=== PATIENT | male | born 1975 | race Two or more races ===

== ENCOUNTER 2018-05-28 13:48 | Emergency (ER) | payer SELFPAY ==
[~2018-05-28] VITALS: Ht 170.2 cm; Wt 72.6 kg
[2018-05-28 14:15] VITALS: BP 115/72
[2018-05-28] MEDS ORDERED: Fluorescein Strips RIGHT EYE ONE (14:15)
[2018-05-28] MEDS ORDERED: Tetracaine 0.5% Opth 4ml Soln RIGHT EYE ONE (14:15)
--- NOTE | 2018-05-28 15:08 | Emergency Room Report ---
History of Present Illness General Chief Complaint: Eye Problems Source: Patient Present Illness HPI 42-year-old male presents to the emergency department complaining of 9 out of 10 in severity pain, erythema and increased lacrimation to bilateral eyes 2 days. Patient reports symptoms in the right eye are more significant than the left. She reports that he was lifting a box and a bunch of dust blew from the top of it down into his eyes bilaterally. Patient reports scratching/foreign body sensation in the right eye. Patient also states that he has pain in the right shoulder as the boxes very heavy.Denies: purulent discharge from the eyes , Loss of vision, Floaters, Flashing lights, photophobia or diplopia. Denies contact lens use. last tetanus unknown. Allergies: Coded Allergies: No Known Allergies (Unverified , 05/28/18) Patient History Past Medical History: see triage record Past Surgical History: none Pertinent Family History: none Reviewed Nursing Documentation: PMH: Agreed; PSxH: Agreed Nursing Documentation-PMH Past Medical History: No Stated History Review of Systems All Other Systems: negative except mentioned in HPI Physical Exam Vital Signs Date Time Temp Pulse Resp B/P (MAP) Pulse Ox O2 Delivery O2 Flow Rate FiO2 05/28/18 13:56 98.4 66 18 115/72 96 Room Air 98.4 Sp02 EP Interpretation: reviewed, normal General Appearance: no apparent distress, alert, GCS 15, non-toxic Head: normocephalic, atraumatic Eyes: right eye other - obvious fb metallic fragment in right eye; bilateral eye normal inspection, bilateral eye PERRL, bilateral eye EOMI, bilateral eye visual acuity - right 20/200, left 20/70, bilateral eye Scleral Injection ENT: hearing grossly normal, normal voice Neck: full range of motion Respiratory: lungs clear, normal breath sounds, speaking full sentences Cardiovascular #1: regular rate, rhythm, normal capillary refill Musculoskeletal: back normal, gait/station normal, normal range of motion, tender - Lateral portion of the right shoulder, FROM, no obvious deformity. Neurologic: alert, oriented x3, responsive, motor strength/tone normal, sensory intact, speech normal, grossly normal Psychiatric: judgement/insight normal Skin: normal color, no rash, warm/dry, well hydrated Procedures Eye Procedure Eye Procedure : Consent: Verbal Alcaine Drops Administered: No - tetricaine Eye FB Removal: removal w/ cotton swab, removal w/ needle Patient Tolerated: Well Complications: None Progress -Removal of metallic Fb from eye- -Verbal consent was obtained. Patient's eye was anesthetized using tetracaine ophthalmic solution, good anesthetic results were obtained. Initial attempt was made using soft tip cotton applicator that was moistened with tetracaine: small fragment of metallic object was removed however residual was seen and therefore removed using a 22-gauge needle to gently scrape the surface of the cornea. After reexamination no evidence of residual foreign body was noted. Medical Decision Making PA Attestation Dr. carbajal is my supervising Physician whom patient management has been discussed with. Diagnostic Impression: Primary Impression: Eye foreign body Qualified Codes: T15.91XA - Foreign body on external eye, part unspecified, right eye, initial encounter Additional Impressions: Corneal abrasion, bilateral Qualified Codes: S05.01XA - Injury of conjunctiva and corneal abrasion without foreign body, right eye, initial encounter; S05.02XA - Injury of conjunctiva and corneal abrasion without foreign body, left eye, initial encounter Biceps muscle strain Qualified Codes: S46.211A - Strain of muscle, fascia and tendon of other parts of biceps, right arm, initial encounter ER Course 42-year-old male presents to the emergency department complaining of 9 out of 10 in severity pain, erythema and increased lacrimation to bilateral eyes 2 days. Patient reports symptoms in the right eye are more significant than the left. She reports that he was lifting a box and a bunch of dust blew from the top of it down into his eyes bilaterally. Patient reports scratching/foreign body sensation in the right eye. Patient also states that he has pain in the right shoulder as the boxes very heavy.Denies: purulent discharge from the eyes , Loss of vision, Floaters, Flashing lights, photophobia or diplopia. Denies contact lens use. last tetanus unknown. Ddx considered but are not limited to: corneal abrasion, globe rupture, FB, Corneal Ulcer, conjunctivitis. Iridis Vital signs: are WNL, pt. is afebrile H&PE are most consistent with: EYE Foreign Body ORDERS: Tetracaine and Fluorescein Stain of the right eye shows uptake about small metallic FB, no sidel sign or evidence of rupture or abrasion. FB is noted in the right eye in the 6'o-clock position over the colored iris of the right eye. less than 1mm in size and does not cross the pupil there is linear uptake in the left eye with no obvious FB. ED INTERVENTIONS: -Tdap Administered. -Removal of metallic Fb from eye- Patient's eye was anesthetized using tetracaine ophthalmic solution, good anesthetic results were obtained. Initial attempt was made using soft tip cotton applicator that was moistened with tetracaine: small fragment of metallic object was removed however residual was seen and therefore removed using a 22-gauge needle to gently scrape the surface of the cornea. After reexamination no evidence of residual foreign body was noted. -Will DC patient with antibiotic eyedrops and strict instructions to followup with ophthalmology.- Pt verbalizes understanding and agreement with proposed treatment plan. DISCHARGE: At this time pt. is stable for d/c to home. Will provide printed patient care instructions, and any necessary prescriptions. Care plan and follow up instructions have been discussed with the patient prior to discharge. Last Vital Signs Date Time Temp Pulse Resp B/P (MAP) Pulse Ox O2 Delivery O2 Flow Rate FiO2 05/28/18 14:36 98.4 05/28/18 14:15 87 18 115/72 96 Room Air Disposition: HOME, SELF-CARE Condition: Stable Scripts Acetaminophen* (TYLENOL EXTRA STRENGTH*) 500 Mg Tablet 500 MG ORAL Q8H, #30 TAB 0 Refills Prov: Magdalena Hinojosa 05/28/18 Ofloxacin (OCUFLOX) 5 Ml Drops 1 DROP OP QID for 5 Days, #5 ML Prov: Magdalena Hinojosa 05/28/18 Referrals: NOT CHOSEN IPA/MD,REFERRING (PCP) Patient Instructions: Corneal Abrasion, [id number], Eye Foreign Body, Easy-to -Read Additional Instructions: Take medications as directed. Follow up with a Associate Account Executive within 72 hours days, even if your symptoms have resolved. --Please review list of primary care clinics, if you do not already have a primary care provider Return sooner to ED if new symptoms occur, or current symptoms become worse. - Please note that this Emergency Department Report was dictated using [employer] technology software, occasionally this can lead to erroneous entry secondary to interpretation by the dictation equipment. Magdalena Hinojosa May 28, 2018 15:08
[2018-05-28] MEDS ORDERED: OCUFLOX5 ML OP (15:09)
[2018-05-28] MEDS ORDERED: TYLENOL EXTRA500 MG ORAL (15:09)
[2018-05-28] MEDS ORDERED: Tetanus/Diptheria/Pertussis Vaccine 0.5ml Syr IM ONE (15:15)
[2018-05-28 15:23] VITALS: BP 115/72
--- NOTE | 2018-05-28 16:12 | Diagnostic Imaging Report ---
Indication: Right shoulder pain Technique: 3 views of the left shoulder Comparison: None Findings: No acute fractures or dislocations. Joint spaces are preserved. Impression: Negative
== END 2018-05-28 15:24 | disposition home or self-care (01) ==
LOC: EMR 14:25
DX: T15.91XA Foreign body on external eye, part unspecified, right eye, initial encounter (principal); H44.791 Retained (old) intraocular foreign body, nonmagnetic, in other or multiple sites, right eye; S05.02XA Injury of conjunctiva and corneal abrasion without foreign body, left eye, initial encounter; Y92.9 Unspecified place or not applicable; Y93.89 Activity, other specified; Z23 Encounter for immunization
CPT/HCPCS: 90471; 90715; 99283